=== PATIENT | female | born 1990 | race Caucasian/White ===

== ENCOUNTER 2024-06-22 20:23 | Emergency (ER) | payer BC, SELFPAY ==
[2024-06-22] VITALS (16 sets, daily range): BP systolic 103–132; BP diastolic 67–94; PULSE 120–172; RESP 17–32; TEMP 36.8; O2SAT 95–100; BMI 32.3
--- NOTE | 2024-06-22 20:41 | EKG_ITS ---
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
--- NOTE | 2024-06-22 20:43 | PD.EDRME ---
Rapid Medical Screening Exam RME Arrival date/time: 06/22/24 20:23 Chief Complaint: Shortness of Breath/Dyspnea Time Seen by Provider: 06/22/24 20:27 Vital signs: Vital Signs Temperature 98.2 F 06/22/24 20:36 Pulse Rate 172 H 06/22/24 20:36 Respiratory Rate 32 H 06/22/24 20:36 Blood Pressure 106/73 06/22/24 20:36 Pulse Oximetry (%) 98 06/22/24 20:36 Oxygen Delivery Method Room Air 06/22/24 20:36 Vital signs reviewed by provider: Yes RME Narrative: 33-year-old female presenting with nausea vomiting and diarrhea.
--- NOTE | 2024-06-22 20:43 | PD.EDSOB ---
ED SOB =RME/HPI General Chief Complaint: Shortness of Breath/Dyspnea Stated Complaint: DIFFICULTY BREATHING, ASTHMA Time Seen by Provider: 06/22/24 20:27 Source: patient and family Arrival date/time: 06/22/24 20:23 Mode of arrival: ambulatory Limitations: no limitations RME / HPI RME / HPI Narrative: --- DR. GUERRERO MAIN ED EVALUATION: 33-year-old female with history of asthma who presents to the emergency department for shortness of breath. When I first saw this patient in triage, she was not wheezing at all. Patient reports she had ran out of her inhaler and had been using her nebulizer instead. She reports no history of intubation. Similar episode occurred about a year ago. She also reports nausea, vomiting and diarrhea that started today at around 1PM. She denies any abdominal pain upon this encounter but reports she had pain earlier when she was vomiting. She notes sick contacts at home, also with nausea, vomiting and diarrhea. No history of diabetes. Related Data Home Medications ?Medication ?Instructions ?Recorded ?Confirmed albuterol 90 mcg/actuation aerosol mcg inhalation 06/22/24 inhaler Allergies Allergy/AdvReac Type Severity Reaction Status Date / Time amoxicillin [From Augmentin] Allergy Verified 06/22/24 21:43 azithromycin Allergy Verified 06/22/24 21:43 clarithromycin [From Biaxin] Allergy Verified 06/22/24 21:43 clavulanic acid Allergy Verified 06/22/24 21:43 [From Augmentin] Penicillins Allergy Verified 06/22/24 21:43 Review of Systems Review of Systems Systems Reviewed: All systems reviewed, normal except as documented Past Medical History Past Medical History NEUROLOGIC: Negative Neurological Disorders CARDIAC: Negative Cardiac Disorders or Congestive Heart Failure RESPIRATORY: Positive Asthma; Negative Chronic Obstructive Pulmonary Disease (COPD) GASTROINTESTINAL: Negative Gastrointestinal Disorders GENITOURINARY: Negative Genitourinary Disorders or Renal Disease REPRODUCTIVE: Negative Endometriosis, Pelvic Inflammatory Disease, Previous Pregnancies or Uterine Prolapse MUSCULOSKELETAL: Negative Musculoskeletal Disorders ENT: Negative History of ENT Problems ENDOCRINE: Negative Endocrine Disorders, Diabetes Mellitus Type 1 or Diabetes Mellitus Type 2 HEMATOLOGIC: Negative Blood Disorders or Sickle Cell Disease Family History FAMILY HISTORY: Negative Family Cardiac Disorders Surgical History SURGICAL: Positive Section (x2) Social History SMOKING STATUS: Never smoker ED Exam Narrative Physical exam: No accessory muscle use. No pedal edema. General Limitations: Present no limitations General appearance: Present alert, in no apparent distress and other (pale) Head Head exam: Present atraumatic, normocephalic and normal inspection Eye Eye exam: Present normal appearance, PERRL and EOMI ENT ENT exam: Present normal exam, normal oropharynx, TM's normal bilaterally and normal external ear exam Neck Neck exam: Present normal inspection and full ROM Chest Chest inspection: Present normal inspection and symmetric chest wall rise Respiratory Respiratory exam: Present normal lung sounds bilaterally Cardiovascular Cardiovascular exam: Present regular rate, normal rhythm and normal heart sounds Abdominal Exam Abdominal exam: Present normal bowel sounds; Absent Garcia's sign Extremities Exam Extremities exam: Present normal inspection and full ROM Back Exam Back exam: Present normal inspection and full ROM Neurological Exam Neurological exam: Present alert, oriented X3 and CN II-XII intact Psychiatric Psychiatric exam: Present normal affect and normal mood; Absent depressed Skin Skin exam: Present warm, dry, intact and normal color Course Quality Measures none Orders Category Date Time Status Bedside Blood Glucose NOW Care 06/23/24 01:01 Active Bedside COVID-19 Antigen Test NOW Care 06/23/24 04:34 Active Bedside Influenza A&B Antigen Test NOW Care 06/23/24 04:[address] Screening NOW Care 06/23/24 01:[address] Screening NOW Care 06/23/24 01:03 Active Social Work Supervisor Q4H START 00 Care 06/23/24 01:01 Active EKG (ED ONLY) *Do not use* NOW Care 06/22/24 20:41 Completed Insert IV NOW Care 06/23/24 01:01 Active Strict Intake and Output Routine Care 06/23/24 01:[address] abdomen pelvis w con Stat Exams 06/23/24 01:[address] angio chest Stat Exams 06/23/24 01:02 Taken CXRP [XR chest 1V portable] Stat Exams 06/22/24 20:44 Completed EKG (ED Only) Stat Exams 06/22/24 20:41 Draft Blood Culture (Lab) Stat Lab 06/23/24 01:01 Received CBC Stat Lab 06/22/24 21:25 Completed CMP [Comprehensive Metabolic Panel] Stat Lab 06/22/24 21:25 Completed COVID-19 Antigen (In-House) Stat Lab 06/23/24 Ordered Drug Screen,Urine Stat Lab 06/23/24 00:53 Completed HCG,Qualitative Serum Stat Lab 06/22/24 21:25 Completed Lactic Acid [Lactate (Lactic Acid)] Stat Lab 06/22/24 21:25 Completed Lactic Acid [Lactate (Lactic Acid)] Stat Lab 06/23/24 01:27 Completed Lactic Acid, 3 HR Stat Lab 06/23/24 04:37 Ordered Lipase Stat Lab 06/22/24 21:25 Completed Mag [Magnesium] Stat Lab 06/22/24 21:25 Completed Partial Thromboplastin Time Stat Lab 06/23/24 01:27 Completed Procalcitonin Stat Lab 06/22/24 21:25 Completed Prothrombin Time with INR Stat Lab 06/23/24 01:27 Completed RSV [Respiratory Syncytial Virus Ag] Stat Lab 06/23/24 01:04 Ordered Albuterol/Ipratr Rt Jessica [Duoneb Rt Jessica] Med 06/22/24 20:43 Discontinued 3 ml INH X1 ONE LORazepam [Ativan Inj] Med 06/22/24 22:05 Discontinued 2 mg IVP X1 ONE MethylPREDNISolone.* [SoluMEDROL Inj] Med 06/22/24 20:43 Discontinued 125 mg IVP X1 ONE Ondansetron Inj [Zofran Inj] Med 06/22/24 20:41 Active 4 mg IV Q4HR PRN Sodium Chloride 0.9% 1000 ml [Ns] 1,000 ml Med 06/22/24 20:41 Discontinued IV 999 mls/hr Sodium Chloride 0.9% 1000 ml [Ns] 1,000 ml Med 06/22/24 20:46 Discontinued IV 999 mls/hr Sodium Chloride 0.9% 1000 ml [Ns] 1,000 ml Med 06/23/24 01:01 Discontinued IV 999 mls/hr Sodium Chloride 0.9% 250 ml [Ns] 250 ml Med 06/22/24 20:46 Discontinued IV 999 mls/hr Vital Signs Vital signs: Vital Signs Temperature 98.2 F 06/22/24 20:36 Pulse Rate 172 H 06/22/24 20:36 Respiratory Rate 32 H 06/22/24 20:36 Blood Pressure 106/73 06/22/24 20:36 Pulse Oximetry (%) 98 06/22/24 20:36 Oxygen Delivery Method Room Air 06/22/24 20:36 Shortness of Breath / Dyspnea MDM Narrative MDM Narrative:: ? Scribe Attestation: I, Loli Young, am scribing for and in the presence of Dr. Garcia. Provider Notation: Although this document has been carefully reviewed, there may still be some phonetic and other typographical errors. These errors are purely grammatical due to imperfections in the software program and should not be construed in any way to compromise the substance of the patient's medical care during this visit. Patient data External records reviewed:: [facility] previous records Clinical information provided by:: patient Social determinants that could affect healthcare access:: none Patient has the following chronic illnesses:: Asthma How is presenting disease/condition affected by chronic disease/condition?: uneffected by Evaluation data The following diagnostics were reviewed and interpreted by me:: lab results, radiology exam(s) and EKG tracing(s) Lab and/or radiology exams considered but not ordered:: None Interpretation Summary: I personally reviewed the radiology data and agree with the radiologist's interpretation. Examination: AP chest single view Exam date and time: June 22, 2024 2054 hrs. Indications: Onset SOB today. Findings: Normal heart size. Lungs are clear. The osseous structures are intact Impression: No active disease Dictated By: Darius Medina MD CT angiogram of the chest with intravenous contrast (axial sections with sagittal and coronal reformats) June 23, 2024 0147 hours Clinical History: 33-year-old with history of asthma, hypoxia Technique:Helical axial sections with sagittal and coronal reformats of the chest were obtained with intravenous contrast. Iterative reconstruction technique was employed to reduce patient radiation exposure. 3D/MIP reconstructed images were also provided. Radiation Dose: Total exam DLP 1121 mGy/cm Comparison: No prior study is available for comparison. Findings: There is no filling defect within the pulmonary artery divisions to suggest pulmonary thromboembolism. The mediastinum demonstrates no evidence of mass or lymphadenopathy. The thoracic aorta is unremarkable. There is no pericardial effusion. Bibasilar atelectasis is seen. The lungs are otherwise clear. No evidence of pleural effusion or pneumothorax. The osseous structures are unremarkable. The visualized upper abdominal viscera are unremarkable. Impression: No CT evidence of pulmonary thromboembolism or other acute intrathoracic pathology. Report Electronically Signed By: Andrea Sanders 06/23/2024 2:59:27 AM [EST] Medications / Prescriptions Medications or Prescriptions considered but not ordered:: None Medication administrations:: Medication Administration History Ondansetron HCl (Ondansetron Inj 2 Mg/Ml Inj 2 Ml) 4 mg IV Q4HR PRN; Protocol PRN Reason: NAUSEA OR VOMITING Stop: 07/22/24 20:40 Discontinued Medications Albuterol/Ipratropium (Albuterol/Ipratropium (Duoneb) Rt Jessica 3 Ml Nebu) 3 ml INH X1 ONE Stop: 06/22/24 20:44 Last Admin: 06/22/24 21:05 Dose: 3 ml Documented By: NE Sodium Chloride (Ns) 1,000 mls @ 999 mls/hr IV .Q1H1M ONE Stop: 06/22/24 21:41 Last Infusion: 06/22/24 22:51 Dose: Infused Documented By: Admin: 06/22/24 21:48 Dose: 999 mls/hr Documented By: TC Sodium Chloride (Ns) 1,000 mls @ 999 mls/hr IV .Q1H1M ONE Stop: 06/22/24 21:46 Last Infusion: 06/22/24 22:52 Dose: Infused Documented By: Admin: 06/22/24 21:48 Dose: 999 mls/hr Documented By: TC Sodium Chloride (Ns) 250 mls @ 999 mls/hr IV .Q16M ONE Stop: 06/22/24 21:01 Last Infusion: 06/22/24 22:15 Dose: Infused Documented By: Admin: 06/22/24 21:49 Dose: 999 mls/hr Documented By: TC Sodium Chloride (Ns) 1,000 mls @ 999 mls/hr IV .Q1H1M ONE Stop: 06/23/24 02:01 Last Infusion: 06/23/24 02:23 Dose: Infused Documented By: Admin: 06/23/24 01:35 Dose: 999 mls/hr Documented By: TC Lorazepam (Lorazepam 2 Mg/Ml Vial) 2 mg IVP X1 ONE Stop: 06/22/24 22:06 Last Admin: 06/22/24 22:09 Dose: 2 mg Documented By: TC Methylprednisolone Sodium Succinate (Methylprednisolone Sod Succ 62.5 Mg/Ml 2ml Vial) 125 mg IVP X1 ONE Stop: 06/22/24 20:44 Last Admin: 06/22/24 21:48 Dose: 125 mg Documented By: LANNY As above Consultations Consultation(s) initiated? (list below): No Diagnosis Shortness of Breath Differential Diagnosis: other (Sepsis, DKA, viral syndrome, covid, elevated lactate from vomiting, asthma exacerbation, PNA) Most likely diagnosis given after review of the tests above:: See clinical impression below Admission Indicated Admission indicated?: not indicated Admission Request Was there a request for admission?: No Disposition Plan Disposition Plan: Discharge Discharge Attestation Discharge Attestation: The patient and all family members were given an opportunity to ask questions and understood the discharge instructions. Discharge instructions specifically effects, indications for sooner follow up or return to the emergency department, and the expected course of current diagnosis. Patient condition: Stable Discharge Plan Plan Patient condition on transfer: Stable Prescriptions/Referrals Prescriptions/Med Rec: No Action albuterol 90 mcg/actuation Aerosol INHALATION Referrals: No Primary/Family,Physician [Primary Care Provider] - In 1 week Problem List Clinical Impression: Diarrhea, Acute dehydration Patient/Caregiver Discharge Instructions Education Materials: Dehydration, ED Diarrhea, Unknown Cause Additional Instructions: Return to the emergency department worsening symptoms or any other concerns. Continue taking Pedialyte and/or Gatorade for dehydration. Return to emergency department in the next 24 to 48 hours if you are having fevers, increasing any pain, you cannot tolerate liquids, or any other concerns Print Language: Barbadian
--- NOTE | 2024-06-22 20:44 | XR_ITS ---
Examination: AP chest single view Technique one AP portable upright chest single view Exam date and time: June 22, 20242053 hrs. Indications: Onset SOB today. Findings: Normal heart size. Lungs are clear. The osseous structures are intact Impression: No active disease
[2024-06-22] MEDS: ALBUTEROL/IPRATROPIUM (Duoneb) RT SOL 3 ML NEBU INH (21:05)
[2024-06-22] MEDS: SODIUM CHLORIDE 0.9% 1000 ML 1,000 ML 999 ML IV ×2 (21:48)
[2024-06-22] MEDS: MethylPREDNISolone SOD SUCC 62.5 MG/ML 2ML VIAL 125 MG IVP (21:48)
[2024-06-22] MEDS: SODIUM CHLORIDE 0.9% 250 ML 250 ML 999 ML IV (21:49)
[2024-06-22 21:58] LABS: Basophils # (Auto) 0.1 Thou/mm3 (0.0-0.2); Basophils % (Auto) 0 % (0-2.5); Eosinophils # (Auto) 0.1 Thou/mm3 (0.0-0.5); Eosinophils % (Auto) 0 % (0-10); Hematocrit 47.7 % (36.0-46.0); Immature Granulocytes % (Auto) 0 % (0-0); Immature Granulocytes Auto 0.06 Thou/mm3 (0.00-0.00); Lymphocytes % (Auto) 6 % (10-50); Mean Corpuscular HGB Conc 33.5 g/dl (31.0-37.0); Mean Corpuscular Hemoglobin 29.8 pg (25.0-35.0); Mean Corpuscular Volume 89 fL (80-100); Monocytes # (Auto) 0.7 Thou/mm3 (0.0-0.8); Monocytes % (Auto) 4 % (0-12); Neutrophils # (Auto) 14.6 Thou/mm3 (1.8-7.7); Neutrophils % (Auto) 89 % (37-80); Nucleated Red Blood Cell % 0 /100 WBC (0); Platelet Count 362 Thou/mm3 (140-440); RDW Standard Deviation 39.7 fL (36.4-46.3); Red Blood Count 5.37 Miln/mm3 (4.00-5.20); White Blood Count 16.4 Thou/mm3 (3.6-11.0)
[2024-06-22] MEDS: LORazepam 2 MG/ML VIAL IVP (22:09)
[2024-06-22 22:11] LABS: HCG,Qualitative Serum Negative
[2024-06-22 22:23] LABS: Alanine Aminotransferase 14 U/L (10-49); Albumin, Serum 5.3 gm/dL (3.5-5.0); Albumin/Globulin Ratio 1.5 (1.2-2.2); Alkaline Phosphatase 131 U/L (46-116); Anion Gap 15 (7-16); Aspartate Amino Transferase 15 U/L (0-34); BUN/Creatinine Ratio 16 Ratio (12-20); Bilirubin,Total 0.8 mg/dL (0.3-1.2); Blood Urea Nitrogen 18 mg/dL (9-23); Calcium 10.2 mg/dL (8.3-10.6); Calcium (Corrected) 10.2 mg/dL (8.5-10.1); Carbon Dioxide 18.9 mMol/L (20.0-31.0); Chloride 104 mMol/L (98-107); Creatinine (Component) 1.1 mg/dL (0.6-1.3); Estimated Creatinine Clearance 83.3 mL/min (>60); Globulin 3.6 gm/dL (2.3-3.5); Glucose 173 mg/dL (74-106); Lipase 49 U/L (12-53); Magnesium 1.6 mg/dL (1.6-2.6); Osmolality,Calculated 281 (275-295); Potassium 4.1 mMol/L (3.4-5.1); Procalcitonin 0.27 ng/ml (0.0-0.49); Sodium 138 mMol/L (136-145); Total Protein 8.9 gm/dL (5.7-8.2); eGFR > 60 See Note
[2024-06-23] VITALS (11 sets, daily range): BP systolic 95–111; BP diastolic 54–69; PULSE 103–132; RESP 17–26; O2SAT 93–98
[2024-06-23 00:48] LABS: Reflex Lactate? Y
--- NOTE | 2024-06-23 01:02 | XR_ITS ---
Examination: CTA chest with intravenous contrast 2-D reconstructions 3-D reconstructions, vascular Date and time of exam: June 23, 2024 0147 hrs. Indications: Onset of hypoxia chest pain shortness of breath beginning 14 hours ago CTDI: vol (mGy) 14 DLP: (mGycm) 155 Technique: Multiple axial sections of the thorax have been obtained. 3 mm slice thickness, from below the hemidiaphragms to above the apices of the lungs. Mediastinal and lung density settings have been obtained. 2-D sagittal and coronal reconstructions. 3-D angiographic renderings, 3-D volume renderings, 3D post processing, vascular maximum intensity projections obtained. Contrast administered is 100 cc Isovue-370. Low dose protocols were performed. One or more of the following dose reduction techniques were used; automated exposure control, adjustment of the mA and/or KV according to patient size, use of iterative reconstruction technique. Findings: No thoracic aortic aneurysmal dilatation Negative for pulmonary artery emboli. No paratracheal tracheobronchial or bronchopulmonary adenopathy. No pneumonia or pulmonary edema or pleural disease No visualized liver or splenic lesions Gallbladder partly visualized no stones noted No pancreatic mass Impression: Negative for pulmonary artery emboli No pneumonia, pulmonary edema or pleural disease
--- NOTE | 2024-06-23 01:03 | XR_ITS ---
Examination: CT abdomen with intravenous contrast CT pelvis with intravenous contrast 2-D coronal reconstructions 2-D sagittal reconstructions Date and time of exam:June 23, 2024 0147 hrs. Indications: Abdominal pain and distention today. CTDI: vol (mGy) 11.2 DLP: (mGycm) 651 Technique: Multiple axial sections of the abdomen and pelvis have been obtained. 64 slice high-resolution scanner used. 3 mm axial sections have been obtained, post intravenous injection 100 cc Isovue-370 2-D sagittal, coronal reconstructions obtained. Low dose protocols were performed. One or more of the following dose reduction techniques were used; automated exposure control, adjustment of the mA and/or KV according to patient size, use of iterative reconstruction technique. Findings: No focal liver or splenic lesion No gallstones No pancreatic mass or edema No renal or ureteral calculi, no hydronephrosis Aorta normal size Normal appendix No bowel obstruction No diverticulitis No pelvic mass Urinary bladder intact Osseous structures intact Impression: No acute process in the abdomen or pelvis
--- NOTE | 2024-06-23 01:08 | PC.NURSE ---
sepsis alert called per Dr. Vale
[2024-06-23] MEDS: SODIUM CHLORIDE 0.9% 1000 ML 1,000 ML 999 ML IV (01:35)
[2024-06-23 01:40] LABS: Lactate (Lactic Acid) 2.2 mMol/L (0.4-2.0)
[2024-06-23 02:05] LABS: INR 1.1 (0.9-1.3); Partial Thromboplastin Time 25.9 Seconds (22.0-36.0); Prothrombin Time 11.9 Seconds (9.0-12.2)
[2024-06-23 02:20] LABS: Amphetamine/Methamp Scrn,U Negative (Negative); Barbiturate Screen,Urine Negative (Negative); Benzodiazepines Screen,Urine Negative (Negative); Benzoylecgonine Screen, Ur Negative (Negative); Fentanyl Screen,Urine Negative (Negative); Opiate Screen,Urine Negative (Negative); THC Screen,Urine Negative (Negative)
--- NOTE | 2024-06-23 03:00 | PRELIM_ITS ---
CT angiogram of the chest with intravenous contrast (axial sections with sagittal and coronal reforma ts) June 23, 2024 0147 hours Clinical History: 33-year-old with history of asthma, hypoxia Techniq ue:Helical axial sections with sagittal and coronal reformats of the chest were obtained with intrave nous contrast. Iterative reconstruction technique was employed to reduce patient radiation exposure. 3D/MIP reconstructed images were also provided. Radiation Dose: Total exam DLP 1121 mGy/cm Comparison : No prior study is available for comparison. Findings:There is no filling defect within the pulmonar y artery divisions to suggest pulmonary thromboembolism. The mediastinum demonstrates no evidence of mass or lymphadenopathy. The thoracic aorta is unremarkable. There is no pericardial effusion. Bibasi lar atelectasis is seen. The lungs are otherwise clear. No evidence of pleural effusion or pneumothor ax.The osseous structures are unremarkable.The visualized upper abdominal viscera are unremarkable.Im pression:No CT evidence of pulmonary thromboembolism or other acute intrathoracic pathology. Report E lectronically Signed By: Andrea Sanders 06/23/2024 2:59:27 AM [EST]
--- NOTE | 2024-06-23 03:06 | PRELIM_ITS ---
CT scan of the abdomen and pelvis with intravenous contrast (axial sections with sagittal and coronal reformats) June 23, 2024 0147 hoursClinical History: Vomiting, shortness of breath.Radiation Dose : Total exam DLP 1121 mGy/cm Comparison: No prior study is available for comparison. Findings:The anum g bases are clear.The liver, gallbladder, pancreas, spleen, kidneys and adrenals are unremarkable.No evidence of bowel obstruction. The appendix is within normal limits (coronal images 61-75/154). There is no mesenteric or retroperitoneal adenopathy.The urinary bladder is unremarkable. The uterus is un remarkable. There are bilateral ovarian follicles.There is no free fluid or free air.The osseous stru ctures are unremarkable.Impression:No evidence of bowel obstruction, free air or abscess. Report Joya ctronically Signed By: Andrea Sanders 06/23/2024 3:05:37 AM [EST]
[2024-06-23 04:37] LABS: Reflex Lactate? Y
== END 2024-06-23 05:47 | disposition home or self-care (01) ==
PROVIDERS: Emergency Provider Emergency Medicine
DX: E86.0 Dehydration (principal); R19.7 Diarrhea, unspecified; J45.909 Unspecified asthma, uncomplicated
CPT/HCPCS: 36415; 71045; 71275; 74177; 80053; 80307; 83605; 83690; 83735; 84145; 84703; 85025; 85610; 85730; 87040; 87400; 87634; 87811; 93005; 94640; 96360; 96361; 96374; 96375; 99285; A4649; A9270; J2060; J2919; J7030; J7050; Q9967